=== PATIENT | female | born 1965 | race Caucasian/White ===

== ENCOUNTER 2023-02-13 12:57 | Inpatient (IN) | payer OTHER ==
[~2023-02-13] VITALS: Ht 149.9 cm; Wt 93.4 kg
[2023-02-13 15:02] LABS: PROTHROMBIN TIME 10.4 sec (9.6-11.0)
[2023-02-13 15:04] LABS: BASOPHILS % 0.6 % (0.0-2.0); LYMPHOCYTES % 29.5 % (20.0-50.0); MEAN CORPUSCULAR HEMOGLOBIN 29.8 pg (28.0-32.0); MEAN CORPUSCULAR HGB CONC 32.5 g/dL (31.0-37.0); MEAN CORPUSCULAR VOLUME 91.5 fL (81.0-99.0); MEAN PLATELET VOLUME 9.2 fl (7.4-10.4); MONOCYTES % 4.4 % (2.0-8.0); NEUTROPHILS % 63.5 % (40.0-76.0); PLATELET 362 x1000/uL (130-400); RED CELL DISTRIBUTION WIDTH 12.6 % (11.6-14.6); WHITE BLOOD COUNT 13.8 x1000/uL (4.5-11.0)
[2023-02-13 15:10] LABS: ALANINE AMINOTRANSFERASE 27 IU/L (10-49); ALBUMIN 4.5 g/dL (3.2-4.8); ASPARTATE AMINOTRANSFERASE 25 IU/L (<34); BILIRUBIN TOTAL 0.3 mg/dL (0.1-1.0); CALCIUM 9.8 mg/dL (8.7-10.4); CARBON DIOXIDE 27 mEq/L (21-32); CHLORIDE 103 mEq/L (98-107); CREATININE 0.5 mg/dL (0.6-1.0); GLUCOSE 119 mg/dL (70-105); POTASSIUM 3.7 mEq/L (3.5-5.1); PROTEIN TOTAL 8.3 g/dL (6.0-8.3); SODIUM 139 mEq/L (136-145); UREA NITROGEN BLOOD 12 mg/dL (9-23)
[2023-02-13 15:15] LABS: TROPONIN I HIGH SENSITIVITY < 4 ng/L (3.0-34)
[2023-02-13] MEDS ORDERED: ASPIRIN 325MG EC TABLET PO ONE (15:45)
[2023-02-13] MEDS ORDERED: NITROGLYCERIN 0.4MG TABLET SL SL PRN (18:30)
[2023-02-13] MEDS ORDERED: ACETAMINOPHEN 325MG TABLET PO PRN (18:30)
[2023-02-13] MEDS ORDERED: DEXTROSE 50% WATER 50ML SYRINGE IV PRN (18:30)
[2023-02-13] MEDS ORDERED: IPRATROPIUM/ALBUTEROL 0.5-3(2.5)MG/3ML NEB HHN PRN (18:30)
[2023-02-13] MEDS ORDERED: ASPIRIN 325MG EC TABLET PO NR (19:00)
[2023-02-13] MEDS ORDERED: CLONIDINE 0.1MG TABLET PO PRN (19:15)
[2023-02-13] MEDS: BLOOD SUGAR DIAGNOSTIC STRIP TEST SCH (21:00)
[2023-02-13] MEDS: INSULIN LISPRO 100 UNITS/ML SUBCUT SCH (21:00)
[2023-02-13 21:43] LABS: LACTIC ACID 2.4 mmol/L (0.4-2.0)
[2023-02-13 23:23] LABS: CREATINE KINASE 34 IU/L (34-145)
[2023-02-13 23:53] LABS: CLARITY URINE CLOUDY (CLEAR); COLOR URINE YELLOW (YELLOW); GLUCOSE URINE NEGATIVE (NEGATIVE); KETONES URINE TRACE (NEGATIVE); LEUKOCYTE ESTERASE URINE 1+ (NEGATIVE); NITRITE URINE POSITIVE (NEGATIVE); OCCULT BLOOD URINE NEGATIVE (NEGATIVE); PROTEIN URINE TRACE (NEGATIVE)
[2023-02-14] VITALS: BP 106/55; PULSE 86; RESP 20; TEMP 97.5
[2023-02-14] MEDS ORDERED: METF-415 PO (00:02)
[2023-02-14] MEDS ORDERED: LISI2.5T47 PO (00:02)
[2023-02-14] MEDS ORDERED: FISH1CAP63 PO (00:02)
[2023-02-14] MEDS ORDERED: ATOR20TA PO (00:02)
[2023-02-14] MEDS ORDERED: GLIM1TAB PO (00:02)
[2023-02-14 00:15] LABS: CREATINE KINASE MB FRACTION < 0.0 ng/mL (0.5-3.6); TROPONIN I HIGH SENSITIVITY < 4 ng/L (3.0-34)
[2023-02-14 00:16] LABS: *AMPHETAMINES SCREEN URINE NEGATIVE (NEGATIVE); *BARBITURATES SCREEN URINE NEGATIVE (NEGATIVE); *BENZODIAZEPINES SCREEN URINE NEGATIVE (NEGATIVE); *COCAINE SCREEN URINE NEGATIVE (NEGATIVE); CANNABINOID URINE SCREEN NEGATIVE (NEGATIVE); ECSTASY MDMA SCREEN URINE NEGATIVE (NEGATIVE); METHADONE URINE SCREEN Neg (NEGATIVE); OPIATES URINE SCREEN NEGATIVE (NEGATIVE); PHENCYCLIDINE URINE SCREEN NEGATIVE (NEGATIVE)
[2023-02-14 02:16] LABS: SQUAMOUS EPITHELIAL CELL URINE 1+ /lpf (RARE/1+)
[2023-02-14 02:21] LABS: RBC URINE 0-2 /hpf (0-2)
[2023-02-14 02:23] LABS: BACTERIA URINE 1+
[2023-02-14 04:00] VITALS: BP 131/75; PULSE 98; RESP 18; TEMP 97.5
[2023-02-14 05:50] LABS: BASOPHILS % 0.4 % (0.0-2.0); EOSINOPHILS % 2.4 % (0.0-5.0); HEMATOCRIT. 38.9 % (36.0-48.0); HEMOGLOBIN. 12.9 g/dL (12.0-16.0); LYMPHOCYTES % 30.1 % (20.0-50.0); MEAN CORPUSCULAR HEMOGLOBIN 29.9 pg (28.0-32.0); MEAN CORPUSCULAR HGB CONC 33.1 g/dL (31.0-37.0); MEAN CORPUSCULAR VOLUME 90.5 fL (81.0-99.0); MEAN PLATELET VOLUME 9.2 fl (7.4-10.4); MONOCYTES % 5.5 % (2.0-8.0); NEUTROPHILS % 61.6 % (40.0-76.0); PLATELET 307 x1000/uL (130-400); RED CELL DISTRIBUTION WIDTH 12.6 % (11.6-14.6); WHITE BLOOD COUNT 13.7 x1000/uL (4.5-11.0)
[2023-02-14] MEDS: INSULIN LISPRO 100 UNITS/ML SUBCUT SCH ×3 (05:53→16:50)
[2023-02-14] MEDS: BLOOD SUGAR DIAGNOSTIC STRIP TEST SCH ×4 (05:53→20:48)
[2023-02-14 06:18] LABS: CREATINE KINASE 36 IU/L (34-145)
[2023-02-14 06:24] LABS: ALANINE AMINOTRANSFERASE 22 IU/L (10-49); ALBUMIN 3.9 g/dL (3.2-4.8); ASPARTATE AMINOTRANSFERASE 21 IU/L (<34); BILIRUBIN TOTAL 0.2 mg/dL (0.1-1.0); CALCIUM 9.1 mg/dL (8.7-10.4); CARBON DIOXIDE 26 mEq/L (21-32); CHLORIDE 103 mEq/L (98-107); CHOLESTEROL 101 mg/dL (<200); CREATININE 0.5 mg/dL (0.6-1.0); GLUCOSE 102 mg/dL (70-105); HDL CHOLESTEROL 24 mg/dL (>65); LDL CHOLESTEROL 59 mg/dL (5-100); POTASSIUM 3.8 mEq/L (3.5-5.1); PROTEIN TOTAL 7.2 g/dL (6.0-8.3); SODIUM 140 mEq/L (136-145); T4 FREE 1.11 ng/dL (0.89-1.76); THYROID STIMULATING HORMONE 2.37 uIU/mL (0.55-4.78); TRIGLYCERIDE 103 mg/dL (0-150); UREA NITROGEN BLOOD 17 mg/dL (9-23)
[2023-02-14 06:48] LABS: CREATINE KINASE MB FRACTION < 0.0 ng/mL (0.5-3.6); TROPONIN I HIGH SENSITIVITY < 4 ng/L (3.0-34)
[2023-02-14] MEDS ORDERED: CEFTRIAXONE 1GM PREMIX 50 ML IV SCH (08:30)
[2023-02-14] MEDS: CEFTRIAXONE 1,000 MG in DEXTROSE 5% WATER 50 ML IV SCH (13:30)
[2023-02-14 16:00] VITALS: BP 127/76; PULSE 82; RESP 17; TEMP 97.9
[2023-02-14] MEDS: METFORMIN HCL 850MG TABLET PO SCH (18:00)
[2023-02-14] MEDS ORDERED: SODIUM CHLORIDE 0.45% 1,000 ML IV ONE (18:00)
[2023-02-14 20:00] VITALS: BP 114/60; PULSE 87; RESP 18; TEMP 98.8
[2023-02-14] MEDS ORDERED: ATORVASTATIN CALCIUM 20MG TABLET PO SCH (21:00)
[2023-02-15] VITALS: BP 122/61; PULSE 91; RESP 18; TEMP 97.9
[2023-02-15 04:00] VITALS: BP 135/78; PULSE 86; RESP 18; TEMP 97.6
[2023-02-15] MEDS: BLOOD SUGAR DIAGNOSTIC STRIP TEST SCH ×3 (06:45→16:48)
[2023-02-15 07:29] LABS: BASOPHILS % 0.5 % (0.0-2.0); EOSINOPHILS % 3.3 % (0.0-5.0); HEMATOCRIT. 40.3 % (36.0-48.0); HEMOGLOBIN. 13.5 g/dL (12.0-16.0); MEAN CORPUSCULAR HGB CONC 33.6 g/dL (31.0-37.0); MEAN CORPUSCULAR VOLUME 89.2 fL (81.0-99.0); MEAN PLATELET VOLUME 9.2 fl (7.4-10.4); MONOCYTES % 5.7 % (2.0-8.0); NEUTROPHILS % 58.5 % (40.0-76.0); PLATELET 302 x1000/uL (130-400); RED BLOOD CELL COUNT 4.51 mill/uL (4.2-5.4); RED CELL DISTRIBUTION WIDTH 12.4 % (11.6-14.6); WHITE BLOOD COUNT 11.2 x1000/uL (4.5-11.0)
[2023-02-15 08:00] VITALS: BP 118/77; PULSE 80; RESP 18; TEMP 98
[2023-02-15] MEDS: METFORMIN HCL 850MG TABLET PO SCH (08:06)
[2023-02-15] MEDS ORDERED: LISINOPRIL 2.5MG TABLET PO SCH (09:00)
[2023-02-15] MEDS: CEFTRIAXONE 1,000 MG in DEXTROSE 5% WATER 50 ML IV SCH (09:16)
[2023-02-15] MEDS ORDERED: ASPIRIN 81MG TABLET PO SCH (11:00)
[2023-02-15 11:19] LABS: ALANINE AMINOTRANSFERASE 23 IU/L (10-49); ALBUMIN 4.1 g/dL (3.2-4.8); ASPARTATE AMINOTRANSFERASE 20 IU/L (<34); BILIRUBIN TOTAL 0.3 mg/dL (0.1-1.0); CALCIUM 9.1 mg/dL (8.7-10.4); CARBON DIOXIDE 23 mEq/L (21-32); CHLORIDE 106 mEq/L (98-107); CREATININE 0.5 mg/dL (0.6-1.0); GLUCOSE 125 mg/dL (70-105); PHOSPHORUS 3.9 mg/dL (2.5-4.9); PROTEIN TOTAL 7.3 g/dL (6.0-8.3); SODIUM 142 mEq/L (136-145); UREA NITROGEN BLOOD 14 mg/dL (9-23)
[2023-02-15 11:47] VITALS: BP 121/70; PULSE 80; RESP 18; TEMP 98
[2023-02-15] MEDS: INSULIN LISPRO 100 UNITS/ML SUBCUT SCH ×2 (11:49→16:50)
[2023-02-15] MEDS ORDERED: MIDAZOLAM HCL 2 MG/2 ML VIAL ONE (12:27)
[2023-02-15] MEDS ORDERED: LIDOCAINE HCL 1% 20ML VIAL (Pyxis) INJ ONE (12:27)
[2023-02-15] MEDS ORDERED: FENTANYL CITRATE/PF 50MCG/ML 2ML VIAL ONE (12:27)
[2023-02-15] MEDS ORDERED: VERAPAMIL HCL 2.5 MG/1 ML 2ML VIAL IV ONE (12:27)
[2023-02-15] MEDS ORDERED: HEPARIN 1000 UNITS/ML 10ML ONE (12:28)
[2023-02-15] MEDS ORDERED: IODIXANOL 320MG/ML 100 ML BOTTLE IV ONE (12:28)
[2023-02-15] MEDS ORDERED: DIPHENHYDRAMINE 50MG/ML VIAL ONE (12:29)
[2023-02-15] MEDS ORDERED: ACETAMINOPHEN 325MG TABLET PO PRN (13:30)
[2023-02-15] MEDS ORDERED: ATROPINE SULFATE 1MG/10ML SYR IV PRN (13:30)
[2023-02-15] MEDS ORDERED: CEFP100T8 MT (14:35)
[2023-02-15] MEDS ORDERED: ATOR20TA65 PO (14:35)
[2023-02-15] MEDS ORDERED: ASPI-1406 PO (14:35)
[2023-02-15 16:56] VITALS: BP 117/81; PULSE 89; RESP 18; TEMP 98
[2023-02-15 17:51] VITALS: BP 120/70; PULSE 89; TEMP 98; O2SAT 98
== END 2023-02-15 18:55 | disposition home or self-care (01) | DRG 287 ==
LOC: ER 12:57 → MICUSO 17:42 → EDBEDREQ 17:45 → EDBEDREQTM 17:45 → 5WST 23:53
PROVIDERS: ADMIT Preventive Medicine Clinical Informatics; ATTEND Preventive Medicine Clinical Informatics
PROC: 4A023N7 Measurement of Cardiac Sampling and Pressure, Left Heart, Percutaneous Approach (ICD-10-PCS; principal; 2023-02-15)
PROC: B211YZZ Fluoroscopy of Multiple Coronary Arteries using Other Contrast (ICD-10-PCS; 2023-02-15)
DX: I25.110 Atherosclerotic heart disease of native coronary artery with unstable angina pectoris (principal); N39.0 Urinary tract infection, site not specified; Z68.41 Body mass index [BMI] 40.0-44.9, adult; Q25.0 Patent ductus arteriosus; E66.9 Obesity, unspecified; I10 Essential (primary) hypertension; E11.9 Type 2 diabetes mellitus without complications; F41.9 Anxiety disorder, unspecified; E86.0 Dehydration; I25.2 Old myocardial infarction; Z79.84 Long term (current) use of oral hypoglycemic drugs; Z90.49 Acquired absence of other specified parts of digestive tract
CPT/HCPCS: 36415; 71045; 80053; 80061; 80305; 81003; 82550; 82553; 82962; 83036; 83605; 83735; 83880; 84100; 84145; 84439; 84443; 84484; 85025; 93005; 93458; 99285; C1769; C1887; C1893; J0696; J1200; J1644; J2250; J3010; J3490; J7060; Q9967